=== PATIENT | male | born 1980 | race Caucasian/White ===

== ENCOUNTER 2020-07-14 15:03 | Emergency (ER) | payer MEDICAID ==
[~2020-07-14] VITALS: Ht 185.4 cm; Wt 101.6 kg
--- NOTE | 2020-07-14 15:10 | NUR ---
The patient is bibra80 and lapd, from street,+SI "took 21 tabs of 0.5mg of xanax few hours ago. The patient denies any hallucinations at this time. In room air and denies SOB. Respiration regular and unlabored. Denies pain. Will continue to monitor the patient.
--- NOTE | 2020-07-14 15:11 | NUR ---
called security for wanding
--- NOTE | 2020-07-14 15:30 | NUR ---
covid swab sent to the lab
[2020-07-14 15:37] LABS: BILIRUBIN,URINE NEGATIVE (NEGATIVE); COLOR,URINE YELLOW (YELLOW); LEUKOCYTE ESTERASE ,URINE SMALL (NEGATIVE); NITRITE, URINE NEGATIVE (NEGATIVE); PROTEIN,URINE NEGATIVE (NEGATIVE); UGLUCOSE NEGATIVE (NEGATIVE); UROBILINOGEN,URINE 0.2 EU/dL (0.2)
[2020-07-14 15:49] LABS: CALCIUM, SERUM 8.9 mg/dL (8.5-10.1); CARBON DIOXIDE 24 mmol/L (21-32); CHLORIDE 100 mmol/L (98-107); CREATININE 1.2 mg/dL (0.6-1.3); GLUCOSE 158 mg/dL (74-106); POTASSIUM 4.2 mmol/L (3.5-5.1); SODIUM SERUM 136 mmol/L (136-145); UREA NITROGEN, BLOOD 12 mg/dL (7-18)
[2020-07-14 16:03] LABS: ACETAMINOPHEN < 0 ug/ml (10-30); ALANINE AMINOTRANSFERASE 39 U/L (12-78); ALBUMIN 4.1 g/dL (3.4-5.0); ALCOHOL, BLOOD < 3 mg/dL (0-0); ALKALINE PHOSPHATASE 41 U/L (46-116); ASPARTATE AMINOTRANSFERASE 17 U/L (15-37); BASOPHILS % (AUTO) 0.1 % (0.0-2.0); BILIRUBIN,DIRECT 0.1 mg/dL (0.0-0.2); BILIRUBIN,TOTAL 0.3 mg/dL (0.2-1.0); EOSINOPHILS % (AUTO) 0.1 % (0.0-6.0); HEMATOCRIT 44 % (39-51); HEMOGLOBIN 14.9 g/dL (13.5-17.5); LYMPHOCYTES # (AUTO) 1.2 /CMM (0.8-4.8); LYMPHOCYTES % (AUTO) 8.2 % (20.0-44.0); MEAN CORPUSCULAR HGB CONC 34 g/dl (31.0-36.0); MEAN CORPUSCULAR VOLUME 90 fL (80-96); MONOCYTES # (AUTO) 0.7 /CMM (0.1-1.30); NEUTROPHILS # (AUTO) 12.6 /CMM (1.8-8.9); NEUTROPHILS % (AUTO) 86.6 % (43.0-81.0); PLATELET COUNT (AUTO) 212 /CMM (150-450); RED BLOOD CELL COUNT(AUTO) 4.96 MIL/uL (4.5-6.0); TOTAL PROTEIN, SERUM 7.2 g/dL (6.4-8.2); WHITE BLOOD COUNT (AUTO) 14.6 K/uL (4.3-11.0)
[2020-07-14 16:25] LABS: BACTERIA,URINE None seen /HPF (None Seen); MUCUS,URINE Rare /LPF (None Seen); RBC,URINE 0-2 /HPF (0-2); SQUAMOUS EPITHELIAL CELL,UR None Seen /HPF (None Seen)
--- NOTE | 2020-07-14 16:31 | NUR ---
"SS consult completed for homelessness and SI. The pt. is a 39 year old male. The pt. is A&O X 4, makes good eye contact. Pt. sttes he fofana sbeen having SI for the pat 2 days with plan to cut his wrist. Pt. states he has Hx. of Schizoaffective Disorder and took many XANAX pills. SW offered pt. voluntary admission at a psych facility. Pt. is agreeable. SW notified charge nurse, Genner and ED nursing to fax clinicals to [facility]. Pt. states he has been experiencing homelessness since June 2020. Pt. states he has no support system and received SSDI. Per pt. he uses Cannabinoids often. Pt. denies HI and denies current hallucinations. Substance Abuse resources provided included: [facility] Substance Abuse Self-Helpline ([facility]) ; [facility]LP [address] [facility]. [place] 916t01 ; [facility] [address] [facility] [address] ; [facility] Rehabilitation [facility] [address] [facility] [phone] ; [facility] [address] [facility] [phone] ; [facility] Treatment [facility] 6763 [facility] [address] ; [facility] 901 [facility] [address] ; [facility] Substance Abuse Helpline([facility])-[facility] ; [facility] ; [facility] [place]; [facility] [place]; [facility] Mendel Mcknight; [facility]; [place] [facility]; [facility], [facility]. Maria L [place]; Alcoholics Anonymous -SFV; Gp-Mmkb-Lizhrrd ; Marijuana Anonymous -SFV; Narcotics Anonymous www.na.org; Year-round shelters: [facility] [address] [place] [address] ; [facility] [address] [place] [address]; [facility] [facility] Ncmihkn8705 [facility]. [facility] [address] Winter Shelters: Cynthia Mccarty [place] Provider: [facility] [place] Address: [address] [place], [address] # of Beds: 47 Population Served: [facility] 6 | [facility] Patricia [facility] Provider: [facility] Address: [address], [address] # of Beds: 66 Population Served: [facility] [place] Provider: First to Serve Address: [address] [facility], [address] # of Beds: 56 Population Served: [facility] Jeramy [place] Provider: EL[facility] Address: [address] [place] [address], [address] # of Beds: 49 Population Served: [facility] 8 | [facility] Provider: First to Serve Address: [address] [facility], [address] # of Beds: 37 Population Served: [facility] Hygiene: [facility]: [address] Gra[address] Arrington ; [facility] [address] [facility] ; [facility] 3362 Mendel Henson . Food Resources: [facility]- [address] [place]; Meet Each Need with Dignity (MEND) [address] [address] Matthias. Bryantoimikaela; [facility] Food [facility] 43[address] [facility]; [facility] 8534 [facility]. Mental Health resources provided: [facility] [address] [place] [address] ; [facility] [address] [facility] [address], [place], [place] [phone] ; [facility] Mental [facility] [address] [facility] [place], [place] [phone] ; [facility] [place], [place] [address] Healthcare Clinics: [facility] [address] [facility], [address] [place]. [place] ; [facility] [address] [facility] [address] [place] [address]; [facility] Health [place] [address] [facility]. [place] [phone] Counseling--Outpatient [facility] [address] [facility], [address] [place], [place] [address] (Specializes in in-depth psychotherapy for emotional distress: anxiety, depression, interpersonal conflicts, life transitions, childhood abuse) [facility] [address] [place], [place] [phone] (Assist with solving problem marital difficulties, separation & divorce, aging parents, & grief, chronic & terminal illness) [facility] [address] [place] [address] (Deal with loss & grief, anxiety, marital difficulties) Homebound/Mental Health Services [address] [address] [facility], [address] [place], [place] [address] (Provide in-home mental services to people who are incapable of leaving their homes) [facility]eds of the Elderly Senior Service/Resource Center [address] [place] [address] [facility] [address] [place] [address] PSYCHIATRIC OUTPATIENT SERVICES [facility] Partial Hospitalization and Intensive Outpatient Program (Managed Care and [place] Only)[address] Leonidas Hess. [facility] [phone] [facility] Partial Hospitalization and Outpatient Ivfvwhk[address] [place], [place] [phone] [facility] Partial Hospitalization and Outpatient Eqjelht7061 Mendel Patel [place], [place] [phone] [facility] Cic40905 Jasmin audi. [address] [place], [place] [phone] [facility] Juan Luis Partial Hospitalization and Outpatient Cfionxr81656 [facility] Mendel McknightEAST [place], [phone] "
--- NOTE | 2020-07-14 16:37 | NUR ---
SW notified charge nurseTimothy that pt. is agreeable to voluntary admission at a psych facility. ED nursing to fax clinicals to [facility] [place] T[facility].
[2020-07-14] MEDS ORDERED: SULFAMETH/TRIMETH 800/160 MG 1 UDTAB TABLET PO ONE (17:00)
[2020-07-14] MEDS ORDERED: SULFAMETH/TRIMETH 800/160 MG 1 UDTAB TABLET ONE (17:07)
--- NOTE | 2020-07-14 18:37 | NUR ---
The patient is alert and oriented x4. Denies having any distress. Respiration regular and unlabored. watching TV.
--- NOTE | 2020-07-14 19:21 | NUR ---
CALLED [facility] TO CONFIRM IF THEY RECIEVED CLINICALS. SPOKE TO RJ AND THEY ARE CURRENTLY REVIEWING CLINICAL INFO. WILL CALL BACK AFTER REVIEWED.
--- NOTE | 2020-07-15 00:30 | NUR ---
PT ACCEPTED TO [facility] BY DR KRAUS. # FOR REPORT [phone]
[2020-07-15 00:40] VITALS: BP 141/79
--- NOTE | 2020-07-15 00:41 | NUR ---
REPORT GIVEN TO ADELA HONG FROM [facility]. REQUESTING TO CALL BACK WITH ETA
--- NOTE | 2020-07-15 00:43 | NUR ---
[email or web address] CALLED FOR TRANSPORT. TRIP# [id number]
--- NOTE | 2020-07-15 00:58 | NUR ---
[facility] ETA [phone]
--- NOTE | 2020-07-15 03:30 | NUR ---
[facility] FOR TRANSPORT.
== END 2020-07-15 04:10 ==
LOC: ER 15:06
DX: R45.851 Suicidal ideations (principal); F25.9 Schizoaffective disorder, unspecified; Z88.8 Allergy status to other drugs, medicaments and biological substances; R94.31 Abnormal electrocardiogram [ECG] [EKG]; Z20.822 Contact with and (suspected) exposure to COVID-19; N30.00 Acute cystitis without hematuria; F12.10 Cannabis abuse, uncomplicated
CPT/HCPCS: 36415; 80048; 80076; 80143; 80307; 80320; 81001; 85025; 87086; 87426; 93005; 99285; C9803; G0480